=== PATIENT | male | born 1970 | race Caucasian/White ===

== ENCOUNTER 2019-12-27 23:40 | Emergency (ER) | payer OTHER ==
[~2019-12-27] VITALS: Ht 185.4 cm; Wt 115.5 kg
[2019-12-28] MEDS ORDERED: IV NORMAL SALINE 500ML BAG 1,000 ML IV SCH
--- NOTE | 2019-12-28 00:04 | EKG ---
[facility] [address] [place] [address] Test Date: 2019-12-27 Test Time: 23:52:37 Pat Name: YONI NICK Department: Room: Gender: M [employer]: : 1970 Requested By: YAMIL SHARP Order Number: [id number] Reading MD: Measurements Intervals [place] Rate: 69 P: 50 NC: 186 QRS: -50 QRSD: 124 T: 26 QT: 426 QTc: 458 Interpretive Statements SINUS RHYTHM ABNORMAL LEFT AXIS DEVIATION S1,S2,S3 PATTERN LEFT ANTERIOR FASCICULAR BLOCK RIGHT BUNDLE BRANCH BLOCK BIFASCICULAR BLOCK ABNORMAL ECG RI6.01 No previous ECG available for comparison
--- NOTE | 2019-12-28 00:09 | PHYS DOC ---
Adult General Chief Complaint Chief Complaint: SYNCOPE HPI HPI 49 yo male presents to the ER with complaints of ETOH/Syncope. [place] states he has been drinking since 6pm and did not eat well today. Patient does not remember exactly what happened. Patient was found at the [facility] and EMS was called. Patient denies chest pain, SOB, nausea, vomiting, abdominal pain, headache or visual changes. Patient denies pain on exam. Review of Systems Review of Systems Constitutional: Denies fever or chills [] Respiratory: Denies cough or shortness of breath [] Cardiovascular: No additional information not addressed in HPI [] GI: Denies abdominal pain, nausea, vomiting, bloody stools or diarrhea [] : Denies dysuria or hematuria [] Musculoskeletal: Denies back pain or joint pain [] Integument: Denies rash or skin lesions [] Neurologic: Denies headache, focal weakness or sensory changes [] All other systems were reviewed and found to be within normal limits, except as documented in this note. Current Medications Current Medications Current Medications Medications (Trade) Dose Ordered Sig/Amy Start Time Stop Time Status Last Admin Dose Admin Potassium Chloride (Klor-Con) 40 meq 1X ONCE 12/28/19 00:45 12/28/19 00:46 UNV Sodium Chloride 1,000 ml @ 1,000 mls/hr 1X ONCE 12/28/19 00:30 12/28/19 01:29 12/28/19 00:21 1,000 MLS/HR Allergies Allergies Allergies Coded Allergies Type Severity Reaction Last Updated Verified No Known Drug Allergies 12/27/19 No Physical Exam Physical Exam Constitutional: Well developed, well nourished, no acute distress, non-toxic appearance. [] HENT: Normocephalic, atraumatic, bilateral external ears normal, oropharynx moist, no oral exudates, nose normal. [] Eyes: PERRLA, EOMI, conjunctiva normal, no discharge. [] Neck: Normal range of motion, no tenderness, supple, no stridor. [] Cardiovascular:Heart rate regular rhythm, no murmur [] Lungs & Thorax: Bilateral breath sounds clear to auscultation [] Abdomen: Bowel sounds normal, soft, no tenderness, no masses, no pulsatile masses. [] Skin: Warm, dry, no erythema, no rash. [] Back: No tenderness, no CVA tenderness. [] Extremities: No tenderness, no edema. [] Neurologic: Alert and oriented X 3, no focal deficits noted. [] Psychologic: Affect normal, judgement normal, mood normal. [] Current Patient Data Vital Signs Vital Signs Date Time Temp Pulse Resp B/P (MAP) Pulse Ox O2 Delivery O2 Flow Rate FiO2 12/27/19 23:40 69 18 126/57 (80) 92 Room Air Lab Values Laboratory Tests Test 12/28/19 00:06 White Blood Count 8.2 x10^3/uL (4.0-11.0) Red Blood Count 4.60 x10^6/uL (4.30-5.70) Hemoglobin 14.5 g/dL (13.0-17.5) Hematocrit 42.0 % (39.0-53.0) Mean Corpuscular Volume 91 fL (79-100) Mean Corpuscular Hemoglobin 32 pg (25-35) Mean Corpuscular Hemoglobin Concent 35 g/dL (31-37) Red Cell Distribution Width 13.0 % (11.5-14.5) Platelet Count 289 x10^3/uL (140-400) Neutrophils (%) (Auto) 59 % (31-73) Lymphocytes (%) (Auto) 30 % (24-48) Monocytes (%) (Auto) 6 % (0-9) Eosinophils (%) (Auto) 4 % (0-3) H Basophils (%) (Auto) 1 % (0-3) Neutrophils # (Auto) 4.8 x10^3/uL (1.8-7.7) Lymphocytes # (Auto) 2.5 x10^3/uL (1.0-4.8) Monocytes # (Auto) 0.5 x10^3/uL (0.0-1.1) Eosinophils # (Auto) 0.3 x10^3/uL (0.0-0.7) Basophils # (Auto) 0.1 x10^3/uL (0.0-0.2) Sodium Level 139 mmol/L (136-145) Potassium Level 2.9 mmol/L (3.5-5.1) *L Chloride Level 103 mmol/L (98-107) Carbon Dioxide Level 26 mmol/L (21-32) Anion Gap 10 (6-14) Blood Urea Nitrogen 12 mg/dL (8-26) Creatinine 0.8 mg/dL (0.7-1.3) Estimated GFR (Cockcroft-Gault) 101.9 BUN/Creatinine Ratio 15 (6-20) Glucose Level 133 mg/dL (70-99) H Calcium Level 8.4 mg/dL (8.5-10.1) L Magnesium Level 1.9 mg/dL (1.8-2.4) Total Bilirubin 0.3 mg/dL (0.2-1.0) Aspartate Amino Transferase (AST) 14 U/L (15-37) L Alanine Aminotransferase (ALT) 26 U/L (16-63) Alkaline Phosphatase 43 U/L (46-116) L Troponin I Quantitative < 0.017 ng/mL (0.000-0.055) Total Protein 6.4 g/dL (6.4-8.2) Albumin 3.7 g/dL (3.4-5.0) Albumin/Globulin Ratio 1.4 (1.0-1.7) Laboratory Tests 12/28/19 00:06 Laboratory Tests 12/28/19 00:06 EKG EKG EKG reviewed, 2354, normal sinus rhythm, 69, left axis deviation[] Radiology/Procedures Radiology/Procedures [] Course & Med Decision Making Course & Med Decision Making Pertinent Labs and Imaging studies reviewed. (See chart for details) []49 yo male presents to the ER with complaints of ETOH/Syncope. Patient states he has been at the [facility] since 6pm, states he has been drinking since 6pm and did not eat well today. Patient does not remember exactly what happened. Patient was found at the [facility] and EMS was called. Patient denies chest pain, SOB, nausea, vomiting, abdominal pain, headache or visual changes. Patient denies pain on exam. Potassium replaced in ER Patient/family refusing CT head despite intoxication Family at bedside for dc home Dragon Disclaimer Dragon Disclaimer This electronic medical record was generated, in whole or in part, using a voice recognition dictation system. Departure Departure Impression: Primary Impression: Syncope and collapse Additional Impression: Alcohol intoxication Disposition: 01 HOME, SELF-CARE Condition: STABLE Patient Instructions: Alcohol Intoxication, [id number], Syncope, [id number] Additional Instructions: Recommend follow up with PCP as needed Return to ER with altered mental status, not acting right, fever, pain Labs with hypokalemia (low potassium) replaced in ER Recommended CT scan of head to rule out intracranial process however patient declined Problem Qualifiers Additional Impression: Alcohol intoxication Complication of substance-induced condition: uncomplicated Qualified Codes: F10.920 - Alcohol use, unspecified with intoxication, uncomplicated YAMIL SHARP MD Dec 28, 2019 00:09
[2019-12-28 00:14] LABS: BASO # 0.1 x10^3/uL (0.0-0.2); BASO % 1 % (0-3); EOS # 0.3 x10^3/uL (0.0-0.7); EOS % 4 % (0-3); HEMOGLOBIN 14.5 g/dL (13.0-17.5); LYMPH # 2.5 x10^3/uL (1.0-4.8); LYMPH % 30 % (24-48); MEAN CORPUSCULAR HEMOGLOBIN 32 pg (25-35); MEAN CORPUSCULAR HGB CONC 35 g/dL (31-37); MEAN CORPUSCULAR VOLUME 91 fL (79-100); MONO # 0.5 x10^3/uL (0.0-1.1); MONO % 6 % (0-9); NEUT # 4.8 x10^3/uL (1.8-7.7); NEUT % 59 % (31-73); PLATELET COUNT 289 x10^3/uL (140-400); WHITE BLOOD COUNT 8.2 x10^3/uL (4.0-11.0)
[2019-12-28 00:27] LABS: ALBUMIN 3.7 g/dL (3.4-5.0); ALBUMIN/GLOBULIN RATIO 1.4 (1.0-1.7); CALCIUM 8.4 mg/dL (8.5-10.1); CREATININE 0.8 mg/dL (0.7-1.3); GFR 101.9; MAGNESIUM 1.9 mg/dL (1.8-2.4); TOTAL BILIRUBIN 0.3 mg/dL (0.2-1.0); TOTAL PROTEIN 6.4 g/dL (6.4-8.2)
[2019-12-28 00:30] VITALS: BP 113/71
[2019-12-28 00:30] LABS: POTASSIUM 2.9 mmol/L (3.5-5.1)
[2019-12-28] MEDS ORDERED: IV NORMAL SALINE 1000ML BAG 1,000 ML IV ONE (00:30)
[2019-12-28] MEDS ORDERED: POTASSIUM CHLORIDE 20 MEQ TABLET.ER. PO ONE (01:00)
== END 2019-12-28 00:48 | disposition home or self-care (01) ==
LOC: ER 23:40
DX: F10.129 Alcohol abuse with intoxication, unspecified (principal); R55 Syncope and collapse
CPT/HCPCS: 36415; 80053; 83735; 84484; 85025; 93005; 99284; J7030